=== PATIENT | male | born 1995 | race Caucasian/White ===

== ENCOUNTER → 2024-09-06 | Outpatient (BNVA) | payer BC, SELFPAY | END | disposition home or self-care (01) | PROVIDERS: PCP Family Medicine; Referring Provider Family Medicine; Visit Provider Urology | DX: Z30.2 Encounter for sterilization (principal); N40.0 Benign prostatic hyperplasia without lower urinary tract symptoms; E66.9 Obesity, unspecified; Z68.35 Body mass index [BMI] 35.0-35.9, adult | CPT/HCPCS: 81003; 99203; 99212; G0463 ==

== ENCOUNTER 2024-09-12 06:05 | Day surgery (SDC) | payer BC, SELFPAY ==
[2024-09-11 14:17] VITALS: BMI 34.9
--- NOTE | 2024-09-11 14:26 | SUR.PREOP ---
Pt interview done over the phone, instructions given over the phone to keep NPO after MN, pt will come in at 0630 tomorrow for surgery.
[2024-09-12] VITALS (7 sets, daily range): BP systolic 108–139; BP diastolic 63–83; PULSE 55–70; RESP 12–14; TEMP 36.4–36.7; O2SAT 95–97; BMI 35.1
--- NOTE | 2024-09-12 07:25 | CHAP ---
Visited briefly with patient giving words of encouragement and prayer.
--- NOTE | 2024-09-12 09:30 | SUR.PHASEI ---
0930: Pt. arrived with oral airway in place, vitals stable, breathing unlabored, no signs of distress, dressing to lorne area CDI, no active bleed noted, jock strap in place, report received from Raymond SAUNDERS and Kraig VERDUZCO.
--- NOTE | 2024-09-12 09:36 | PD.SUROPNT ---
Date of Procedure 09/12/24 Pre Op Diagnosis Elective sterilization Post Op Diagnosis Same Procedure Bilateral vasectomy Findings Bilateral vas, bilateral hydroceles small Procedure Description This is [id number] male came for bilateral vasectomy procedure and complications were discussed with patient in great detail informed consent was obtained patient understood very well there is no warranty for permanent sterilization. Procedure patient was brought to the operating room in a satisfactory condition after appropriate premedication was put on the operating table in a supine position general anesthesia was given uneventfully parts were prepped and draped in a usual sterile fashion. Next the right vas deferens was palpated between 2 fingers and a thumb 2% lidocaine with quarter percent Marcaine was instilled appropriately vertical skin incision was made proper hemostasis was secured. Next the vas deferens was brought into the incision it was from its various fascial coverings between 2 silver clips centimeter of the vas deferens was excised. The lumen of the vas deferens was diathermized with coagulation diathermy distal end of the vas deferens was buried between various fascial layers. Skin was approximated with 3-0 chromic. Similar procedure was repeated on the opposite side. Next this sterile dressings were applied. Pressure bandage was given Patient having tolerated the procedure well and was sent to recovery room in a satisfactory condition to be discharged home with full postoperative instructions were verbally as well as in writing to be followed in urology office in 12 weeks' time. Pathology / specimen None Estimated Blood Loss 0.5 Condition Stable Disposition PACU Surgeon Indigo Peterson MD Surgical Staff Operation Date: 09/12/24 08:30 Case Staff [employer]OR OPERATOR: Kraig Negrete
[2024-09-12] MEDS: fentaNYL CIT INJ 50 mCg/ML AMP 2ML 25 MCG IV (09:53)
--- NOTE | 2024-09-12 10:20 | SUR.PHASEII ---
1020: Pt. AAOx4, vitals stable, breathing unlabored, no complaint of pain or nausea, dressing to groin CDI, no active bleed noted, pt. tolerated sips of water well, pt. ambulated to wheelchair with steady gait and no assist, no complications. Gave discharge instructions to the pt. and his ride, both verbalized understanding and had no further questions. Pt. left with all personal belongings.
== END 2024-09-12 10:20 | disposition home or self-care (01) ==
PROVIDERS: PCP Family Medicine; Referring Provider Urology; Visit Provider Urology
PROC: (CPT 55250; principal; 2024-09-12 08:30)
DX: Z30.2 Encounter for sterilization (principal); N43.3 Hydrocele, unspecified
CPT/HCPCS: 55250; A4217; A4649; J0131; J2250; J2704; J3010; J3490; A9270

== ENCOUNTER → 2025-01-25 | Outpatient (BNVA) | payer OTHER, BC, SELFPAY | END | disposition home or self-care (01) | PROVIDERS: PCP Family Medicine; Referring Provider Family Medicine; Visit Provider Urology | DX: N40.0 Benign prostatic hyperplasia without lower urinary tract symptoms (principal); Z98.52 Vasectomy status | CPT/HCPCS: 81003; 99212; G0463 ==